=== PATIENT | female | born 1970 | race Caucasian/White ===

== ENCOUNTER 2021-11-30 10:56 | Inpatient (IN) | payer OTHER ==
[~2021-11-30] VITALS: Ht 154.9 cm; Wt 93.0 kg
[2021-11-30 12:20] LABS: BASOPHIL 0.2 % (0-2); EOSINOPHIL 0 % (0-5); HCT 36.4 % (37.0-47.0); HGB 13.3 g/dl (12.5-16.0); LYMPHOCYTE 5.3 % (15-48); MCH 33.8 pg (25.0-31.0); MCHC 36.5 g/dL (32.0-36.0); MCV 92.6 fL (78.0-100.0); MONOCYTE 6.2 % (0-12); MPV 10.3 fL (6.0-9.5); NEUTROPHIL 87.4 % (41-80); NRBC 0; PLT 347 K/uL (150-400); RBC 3.93 M/uL (4.20-5.40); RDW 13.2 % (11.5-14.0); WBC 18.5 K/uL (4.0-10.5)
[2021-11-30 12:40] LABS: LACTIC ACID 5.1 mmol/L (0.4-1.9)
[2021-11-30 13:01] LABS: ALBUMIN 4.9 g/dL (3.4-5.0); BILIRUBIN - TOTAL 0.4 mg/dL (0.2-1.0); BUN/CREAT RATIO (CALC) 20.9 RATIO; CREATININE 1.77 mg/dL (0.51-0.95); GLOBULIN (CALCULATION) 3.2 g/dL; POTASSIUM 3.7 mmol/L (3.5-5.1); TOTAL PROTEIN 8.1 g/dL (6.4-8.2)
[2021-11-30 14:09] LABS: CORONAVIRUS 2019 SARS-COV-2 NEGATIVE (NEGATIVE); INFLUENZA A NAA NEGATIVE (NEGATIVE)
[2021-11-30 16:19] LABS: BILIRUBIN NEGATIVE (NEGATIVE); BLOOD TRACE-LYSED Ery/uL (NEGATIVE); CLARITY CLEAR (CLEAR); COLOR YELLOW (YELLOW); GLUCOSE (U) NORMAL (NORMAL); LEUKOCYTES NEGATIVE Leu/uL (NEGATIVE); NITRITE NEGATIVE (NEGATIVE); PROTEIN TRACE (LOW) mg/dL (NEGATIVE); SPECIFIC GRAVITY 1.025 (1.001-1.030); UROBILINOGEN 0.2 mg/dL (0.2-1.0); pH 5.5 (5.0-9.0)
[2021-11-30 16:30] LABS: URINARY WBC RARE
[2021-11-30 16:33] LABS: AMORPHOUS URATES CRYSTALS MODERATE
[2021-12-01] MEDS ORDERED: ZOLOFT50 MG PO (02:11)
[2021-12-01] MEDS ORDERED: ZANAFLEX6 MG PO (02:12)
[2021-12-01] MEDS ORDERED: ZETIA10 MG PO (02:12)
[2021-12-01] MEDS ORDERED: LOPRESSOR50 MG PO (02:13)
[2021-12-01] MEDS ORDERED: SEROQUEL 25MG T25 MG PO (02:14)
[2021-12-01] MEDS ORDERED: LIPITOR40 MG PO (02:14)
[2021-12-01] MEDS ORDERED: PROTONIX 40MG T40 MG PO (02:15)
[2021-12-01] MEDS ORDERED: FIORICET1 EACH PO (02:16)
[2021-12-01] MEDS ORDERED: TOPAMAX200 MG PO (02:16)
[2021-12-01 11:04] LABS: BASOPHIL 0.2 % (0-2); EOSINOPHIL 0 % (0-5); HCT 32.3 % (37.0-47.0); HGB 10.6 g/dl (12.5-16.0); LYMPHOCYTE 9.5 % (15-48); MCHC 32.8 g/dL (32.0-36.0); MCV 94.4 fL (78.0-100.0); MONOCYTE 10.9 % (0-12); MPV 9.7 fL (6.0-9.5); NEUTROPHIL 77.4 % (41-80); NRBC 0; PLT 290 K/uL (150-400); RBC 3.42 M/uL (4.20-5.40); RDW 13.2 % (11.5-14.0); WBC 23.2 K/uL (4.0-10.5)
[2021-12-01 11:30] LABS: BUN/CREAT RATIO (CALC) 22.9 RATIO; CREATININE 1.4 mg/dL (0.51-0.95); POTASSIUM 3.2 mmol/L (3.5-5.1)
[2021-12-01 11:50] LABS: HCG (URINE) SCREEN NEGATIVE (NEGATIVE)
[2021-12-01 13:04] LABS: BILIRUBIN - DIRECT 0.1 mg/dL (0.00-0.20); BILIRUBIN - TOTAL 0.5 mg/dL (0.2-1.0); GLOBULIN (CALCULATION) 3.4 g/dL; TOTAL PROTEIN 7.4 g/dL (6.4-8.2)
[2021-12-02 06:24] LABS: BASOPHIL 0.3 % (0-2); EOSINOPHIL 0.7 % (0-5); HCT 26.6 % (37.0-47.0); HGB 8.5 g/dl (12.5-16.0); MCH 31.1 pg (25.0-31.0); MCV 97.4 fL (78.0-100.0); MONOCYTE 8.7 % (0-12); MPV 10.1 fL (6.0-9.5); NEUTROPHIL 72.9 % (41-80); NRBC 0; PLT 155 K/uL (150-400); RBC 2.73 M/uL (4.20-5.40); RDW 13.3 % (11.5-14.0); WBC 9.5 K/uL (4.0-10.5)
[2021-12-02 07:13] LABS: CREATININE 1.04 mg/dL (0.51-0.95); MAGNESIUM 1.5 mg/dL (1.8-2.4); POTASSIUM 3.1 mmol/L (3.5-5.1)
[2021-12-03 06:55] LABS: BASOPHIL 0.6 % (0-2); HCT 27.7 % (37.0-47.0); HGB 8.7 g/dl (12.5-16.0); LYMPHOCYTE 21.7 % (15-48); MCH 30.6 pg (25.0-31.0); MCHC 31.4 g/dL (32.0-36.0); MCV 97.5 fL (78.0-100.0); MONOCYTE 8.2 % (0-12); MPV 9.7 fL (6.0-9.5); NEUTROPHIL 65.7 % (41-80); NRBC 0; PLT 136 K/uL (150-400); RBC 2.84 M/uL (4.20-5.40); RDW 13.2 % (11.5-14.0); WBC 6.4 K/uL (4.0-10.5)
[2021-12-03 07:15] LABS: BUN/CREAT RATIO (CALC) 18.8 RATIO; CREATININE 0.96 mg/dL (0.51-0.95); POTASSIUM 3.4 mmol/L (3.5-5.1)
[2021-12-03 07:27] LABS: MAGNESIUM 2.3 mg/dL (1.8-2.4)
[2021-12-04 07:06] LABS: HGB 8.8 g/dL (12.5-16.0)
[2021-12-05 06:10] LABS: BASOPHIL 0.6 % (0-2); EOSINOPHIL 6.5 % (0-5); HGB 8.7 g/dl (12.5-16.0); LYMPHOCYTE 24.4 % (15-48); MCHC 31.1 g/dL (32.0-36.0); MCV 99.6 fL (78.0-100.0); MPV 10.3 fL (6.0-9.5); NEUTROPHIL 50.8 % (41-80); NRBC 0; PLT 159 K/uL (150-400); RBC 2.81 M/uL (4.20-5.40); RDW 13.4 % (11.5-14.0); WBC 4.8 K/uL (4.0-10.5)
[2021-12-05 06:30] LABS: ALBUMIN 2.8 g/dL (3.4-5.0); BILIRUBIN - TOTAL 0.3 mg/dL (0.2-1.0); BUN/CREAT RATIO (CALC) 6.5 RATIO; CREATININE 0.92 mg/dL (0.51-0.95); GLOBULIN (CALCULATION) 3.2 g/dL; POTASSIUM 3.6 mmol/L (3.5-5.1)
[2021-12-06 05:56] LABS: HCT 30.1 % (37.0-47.0); HGB 9.5 g/dl (12.5-16.0); MCH 30.8 pg (25.0-31.0); MCHC 31.6 g/dL (32.0-36.0); MCV 97.7 fL (78.0-100.0); MPV 9.9 fL (6.0-9.5); RBC 3.08 M/uL (4.20-5.40); RDW 13.6 % (11.5-14.0); WBC 5.4 K/uL (4.0-10.5)
[2021-12-06 06:24] LABS: BUN/CREAT RATIO (CALC) 4.3 RATIO; CREATININE 0.92 mg/dL (0.51-0.95); POTASSIUM 3.6 mmol/L (3.5-5.1)
[2021-12-06] MEDS ORDERED: PROTONIX 40MG T40 MG PO (08:12)
[2021-12-06] MEDS ORDERED: CARAFATE1 GM PO (08:12)
[2021-12-06] MEDS ORDERED: OXY-IR 5MG5 MG PO ×3 (08:12→08:41)
== END 2021-12-06 10:43 | disposition home or self-care (01) | DRG 377 ==
LOC: FER 10:56 → FMS 17:19
PROVIDERS: Allergy & Immunology Allergy; Anesthesiology; Internal Medicine; Nurse Practitioner Family; Student in an Organized Health Care Education/Training Program; ADMIT Family Medicine
PROC: 0W3P8ZZ Control Bleeding in Gastrointestinal Tract, Via Natural or Artificial Opening Endoscopic (ICD-10-PCS; 2021-12-01)
PROC: 0DB98ZX Excision of Duodenum, Via Natural or Artificial Opening Endoscopic, Diagnostic (ICD-10-PCS; principal; 2021-12-01 12:00)
PROC: 0DB78ZX Excision of Stomach, Pylorus, Via Natural or Artificial Opening Endoscopic, Diagnostic (ICD-10-PCS; 2021-12-01 12:00)
DX: K26.4 Chronic or unspecified duodenal ulcer with hemorrhage (principal); R65.11 Systemic inflammatory response syndrome (SIRS) of non-infectious origin with acute organ dysfunction; D62 Acute posthemorrhagic anemia; N17.9 Acute kidney failure, unspecified; E87.2 Acidosis; K63.89 Other specified diseases of intestine; Z20.822 Contact with and (suspected) exposure to COVID-19; E66.01 Morbid (severe) obesity due to excess calories; I10 Essential (primary) hypertension; B95.5 Unspecified streptococcus as the cause of diseases classified elsewhere; B95.8 Unspecified staphylococcus as the cause of diseases classified elsewhere; E87.6 Hypokalemia; E83.42 Hypomagnesemia; E78.5 Hyperlipidemia, unspecified; G47.00 Insomnia, unspecified; F32.A Depression, unspecified; F41.9 Anxiety disorder, unspecified; K21.9 Gastro-esophageal reflux disease without esophagitis; G43.909 Migraine, unspecified, not intractable, without status migrainosus; Z90.49 Acquired absence of other specified parts of digestive tract; Z79.899 Other long term (current) drug therapy; Z88.8 Allergy status to other drugs, medicaments and biological substances; Z68.38 Body mass index [BMI] 38.0-38.9, adult; Z28.310 Unvaccinated for COVID-19; Z87.442 Personal history of urinary calculi
CPT/HCPCS: 36415; 74240; 80048; 80053; 80076; 80202; 81001; 82150; 83605; 83690; 83735; 84145; 84703; 85018; 85025; 87040; 87077; 87186; 87880; C9113; J0171; J1170; J1885; J2270; J2405; J2543; J2550; J2704; J3475; J3480; J7030; J7050; J7120; Q0138; U0002